=== PATIENT | female | born 1960 | race Caucasian/White ===

== ENCOUNTER 2016-12-08 15:48 | Emergency (ER) | payer SELFPAY ==
[2016-12-08 18:27] VITALS: BP 181/97
--- NOTE | 2016-12-08 18:35 | UC ---
Hand/Wrist HPI - HPI Summary HPI Summary: awoke this morning with swollen tender red pinky finger right hand no known trauma no difficulty ROM - History Of Current Complaint Chief Complaint: UCUpperExtremity Stated Complaint: FINGER INJURY Time Seen by Provider: 12/08/16 18:28 Hx Obtained From: Patient ?: No Mechanism Of Injury: no known injury Onset/Duration: Sudden Onset, Lasting Days - 1, Still Present Severity Initially: Mild Severity Currently: Moderate Pain Intensity: 5 Pain Scale Used: 0-10 Numeric Character Of Pain: Aching, Throbbing Aggravating Factor(s): Internal/External Rotation Alleviating: Nothing Associated Signs And Symptoms: Positive: Swelling, Redness Related History: Dominant Hand Right - Allergies/Home Medications Allergies/Adverse Reactions: Allergies Allergy/AdvReac Type Severity Reaction Status Date / Time Sulfa Drugs Allergy Severe Rash Verified 12/08/16 16:19 Home Medications: Home Medications Multiple Vitamins W/ Minerals [Multivitamin Adults] 1 tab PO DAILY 12/08/16 [ History Confirmed 12/08/16] PMH/Surg Hx/FS Hx/Imm Hx Previously Healthy: No Endocrine History Of: Denies: Diabetes, Thyroid Disease Cardiovascular History Of: Reports: Hypertension Denies: Cardiac Disorders Respiratory History Of: Denies: COPD, Asthma - Surgical History Surgical History: Yes Surgery Procedure, Year, and Place: CHOLECYSTECTOMY, HYSTERECTOMY - Family History Family History: no cardiovascular issues rported in family lineage - Social History Occupation: Employed Full-time Lives: With Family Alcohol Use: Occasionally Substance Use Type: None Smoking Status (MU): Never Smoked Tobacco Have You Smoked in the Last Year: No Review of Systems Constitutional: Negative Skin: Negative, Other - erythema distally right 5th finger Eyes: Negative ENT: Negative Respiratory: Negative Cardiovascular: Negative Gastrointestinal: Negative Genitourinary: Negative Motor: Negative Neurovascular: Negative Musculoskeletal: Arthralgia - tenderness right 5th finger Neurological: Negative Psychological: Negative All Other Systems Reviewed And Are Negative: Yes Physical Exam Triage Information Reviewed: Yes Appearance: Well-Appearing, No Pain Distress, Well-Nourished Vital Signs: Initial Vital Signs Temp 99.4 F 12/08/16 16:15 Pulse 104 12/08/16 16:15 Resp 16 12/08/16 16:15 BP 182/97 12/08/16 16:15 Pulse Ox 97 12/08/16 16:15 Vital Signs Reviewed: Yes Eye Exam: Normal Eyes: Positive: Conjunctiva Clear ENT Exam: Normal ENT: Positive: Normal ENT inspection, Hearing grossly normal, Pharynx normal. Negative: Nasal congestion, Nasal drainage, Trismus, Muffled/hoarse voice Dental Exam: Normal Neck exam: Normal Neck: Positive: Supple, Nontender, No Lymphadenopathy Respiratory Exam: Normal Respiratory: Positive: Chest non-tender, Lungs clear, Normal breath sounds, No respiratory distress, No accessory muscle use Cardiovascular Exam: Normal Musculoskeletal Exam: Normal Musculoskeletal: Positive: Strength Intact, ROM Intact, No Edema Neurological Exam: Normal Neurological: Positive: Alert, Muscle Tone Normal Psychological Exam: Normal Skin Exam: Other Skin: Positive: Other - erythema right fifth finger Hand/Wrist Course/Dx - Course Course Of Treatment: warm soaks, splint for comfort, keflex, ibuprofen follow BP with pcp - Differential Dx/Diagnosis Differential Diagnosis/HQI/PQRI: Bursitis, Cellulitis, Contusion, Sprain, Strain Provider Diagnoses: Cellulitis rigth 5th finger Discharge - Discharge Plan Condition: Stable Disposition: HOME Prescriptions: Cephalexin CAP* [Keflex CAP*] 500 mg PO QID #40 cap Patient Education Materials: Paronychia (ED), DASH Eating Plan (ED), Hypertension (ED), Warm Compress or Soak (ED) Forms: *Work Release Referrals: Sudhir Serna MD [Primary Care Provider] - 1 Week
== END 2016-12-08 18:48 | disposition home or self-care (01) ==
LOC: UCEAST 15:48
DX: L03.011 Cellulitis of right finger (principal); B96.89 Other specified bacterial agents as the cause of diseases classified elsewhere
CPT/HCPCS: 99212; G0463

== ENCOUNTER 2019-01-02 10:29 | Emergency (ER) | payer OTHER ==
[2019-01-02 10:54] VITALS: BP 163/91
--- NOTE | 2019-01-02 11:56 | UC ---
Respiratory Complaint HPI - HPI Summary HPI Summary: 58 y/o female presents to the urgent care c/o productive cough and yellowish sputum for the past 2 weeks. Pt reports symptoms started w/ low grade fever, nasal congestion and clear nasal discharge and PND. Symptoms have worsen since about 2 days ago she developed sore throat w/ a lot of PND.Pt hasn't been able to sleep well due to cough. This morning she noticed some white spots on her tonsils. Pt denies SOB, chest pain, dizziness, chest pain, abdominal pain, N/V/ D. - History of Current Complaint Chief Complaint: UCRespiratory Stated Complaint: RESP Time Seen by Provider: 01/02/19 11:32 Hx Obtained From: Patient Onset/Duration: Gradual Onset, Lasting Weeks - 2 weeks of productive cough and yellowish phlegm, Worse Since - 3 days w/ sore throat and white spot Timing: Intermittent Episodes Severity Initially: Mild Severity Currently: Moderate Pain Intensity: 4 - sore throat Pain Scale Used: 0-10 Numeric Character: Cough: Productive, Sputum Description: - yellowish Aggravating Factors: Recumbent Position Alleviating Factors: OTC Meds - cough drops Associated Signs And Symptoms: Positive: Fever - first day, URI, Nasal Congestion, Sinus Discomfort. Negative: Wheezing - Risk Factors Pulmonary Embolism Risk Factors: Negative Cardiac Risk Factors: Negative Pseudomonas Risk Factors: Negative Tuberculosis Risk Factors: Negative - Allergies/Home Medications Allergies/Adverse Reactions: Allergies Allergy/AdvReac Type Severity Reaction Status Date / Time Sulfa (Sulfonamide Allergy Rash Verified 01/02/19 10:52 Antibiotics) Home Medications: Home Medications Ibuprofen [Advil] 400 mg PO ONCE PRN 01/02/19 [History Confirmed 01/02/19] PMH/Surg Hx/FS Hx/Imm Hx Previously Healthy: Yes Cardiovascular History: Hypertension - diet controlled - Surgical History Surgical History: Yes Surgery Procedure, Year, and Place: CHOLECYSTECTOMY, HYSTERECTOMY - Family History Known Family History: Positive: Hypertension Family History: no cardiovascular issues rported in family lineage - Social History Occupation: Employed Full-time Lives: With Family Alcohol Use: Occasionally Substance Use Type: None Smoking Status (MU): Former Smoker Have You Smoked in the Last Year: No Review of Systems All Other Systems Reviewed And Are Negative: Yes Constitutional: Positive: Fever - low grade fever Skin: Positive: Negative Eyes: Positive: Negative ENT: Positive: Sore Throat, Other - PND Respiratory: Positive: Cough - productive w/ yellowish phlemg Cardiovascular: Positive: Negative Gastrointestinal: Positive: Negative Genitourinary: Positive: Negative Motor: Positive: Negative Neurovascular: Positive: Negative Musculoskeletal: Positive: Negative Neurological: Positive: Negative Psychological: Positive: Negative Is Patient Immunocompromised?: No Physical Exam - Summary Physical Exam Summary: Vital Signs Reviewed: Yes General: well developed, well nourished male sitting in the examining table w/o any apparent distress Eyes: Positive: Conjunctiva Clear - PERRLA, EOMI, fundi grossly normal ENT: Positive: Normal ENT inspection, Hearing grossly normal, Pharynx normal, Nasal congestion - edematous and erythematous nasal mucosa, Nasal drainage - yellowish drainage, TMs normal. Negative: Tonsillar swelling, Tonsillar exudate Neck: Positive: Supple, Nontender, No Lymphadenopathy Respiratory: no orthopnea or dyspnea. Able to speak in full sentences, no retractions or accessory muscle use, no tripod position, stridor, or head bobbing. Positive breath sounds bilaterally. diffuse scattered rhonchi on b/ L lungs, wheezes, no crackles or rales. Cardiovascular: Positive: RRR, No Murmur, Pulses Normal, Brisk Capillary Refill Abdomen Description: Positive: Nontender, No Organomegaly, Soft. Negative: CVA Tenderness (R), CVA Tenderness (L) Bowel Sounds: Positive: Present Musculoskeletal Exam: Normal Musculoskeletal: Positive: Strength Intact, ROM Intact, No Edema Neurological Exam: Normal Psychological Exam: Normal Skin Exam: Normal Triage Information Reviewed: Yes Vital Signs: Initial Vital Signs Temp 97.5 F 01/02/19 10:48 Pulse 114 01/02/19 10:48 Resp 18 01/02/19 10:48 BP 163/91 01/02/19 10:48 Pulse Ox 97 01/02/19 10:48 Respiratory Course/Dx - Course Course Of Treatment: 58 y/o female presents to the urgent care c/o productive cough and yellowish sputum for the past 2 weeks. Pt reports symptoms started w/ low grade fever, nasal congestion and clear nasal discharge and PND. Symptoms have worsen since about 2 days ago she developed sore throat w/ a lot of PND.Pt hasn't been able to sleep well due to cough. This morning she noticed some white spots on her tonsils. Pt denies SOB, chest pain, dizziness, chest pain, abdominal pain, N/V/ D. Hx obtained. Pt w/ scattered rhonchi on B/L posterior lungs and pharyngitis on examination. hx obtained. Rapid strep: negative.Pt with Acute bronchitis on examination. Pt Rx Augmentin PO and Tessalon tabs PO to alleviate cough. Pt advised to increase fluid intake and eat well. if not improvement or worsening of symptoms to return to the urgent care or f/u with PCP for further management. Pt's BP is elevated today advised to decrease salt in diet, monitor BP and f/u with PCP for further management. Pt understood and agreed with plan of care. - Differential Dx/Diagnosis Differential Diagnosis/HQI/PQRI: Asthma, Bronchitis, Exacerbation Of COPD, Lower Resp Infection, Sinusitis, Other - pneumonia Provider Diagnosis: Acute bronchitis, Uncontrolled hypertension Discharge - Sign-Out/Discharge Documenting (check all that apply): Patient Departure - d/C home All imaging exams completed and their final reports reviewed: No Studies - Discharge Plan Condition: Stable Disposition: HOME Prescriptions: Amoxicillin/Clavulanate TAB* [Augmentin TAB 875*] 875 mg PO BID #20 tab Benzonatate CAP* [Tessalon 100 MG CAP*] 100 mg PO TID PRN #21 cap PRN Reason: Cough Patient Education Materials: Acute Bronchitis (ED) [place]errals: [facility] [place] [facility] [place]] - 3 Days Additional Instructions: 1-Please take full course of antibiotic to avoid resistance. Take yogurt w/ probiotics or Culturelle to protect your GI system 2-Take Tessalon PO tabs as directed to alleviate cough. Increase fluid intake , rest and eat well. 3- If symptoms do not improve or worsen or your develop SOB with fever and severe wheezing please go immediately to the ER further evaluation and treatment. 4-Your BP is elevated today. Please take your BP medications and decrease salt in your diet, monitor BP and if it continues to be elevated please f/u with your PCP for further management. If you develop chest pain, dizziness, visual disturbances, SOB, or severe LUEVANO please go immediately to the ER for further management 5- Rapid strep: negative. F/u with your PCP in 3 days if not improvement of symptoms for further management. - Billing Disposition and Condition Condition: STABLE Disposition: Home
== END 2019-01-02 12:30 | disposition home or self-care (01) ==
LOC: UCEAST 10:29
DX: J20.9 Acute bronchitis, unspecified (principal); I10 Essential (primary) hypertension; Z88.2 Allergy status to sulfonamides; Z87.891 Personal history of nicotine dependence
CPT/HCPCS: 87651; 99212; G0463

== ENCOUNTER 2019-01-31 10:13 | Emergency (ER) | payer OTHER ==
--- NOTE | 2019-01-31 12:41 | UC ---
Throat Pain/Nasal Godfrey HPI - HPI Summary HPI Summary: 58 y/o female presents to the urgent care c/o sore throat for the past 3 days. Pt reports pain w/ swallowing is 2/10, But she noticed a white spot in her left tonsil. Pt reports she had Bronchitis about 1 months ago and was Rx Augmentin PO and symptoms resolved completely. Pt states she has Hx of HTN but diet controlled. Pt has not taken any medications to alleviate symptoms. pt denies fever, dizziness, LUEVANO, visual changes, SOB, chest pain, abdominal pain, N/v/d. - History of Current Complaint Chief Complaint: UCGeneralIllness Stated Complaint: SORE THROAT Time Seen by Provider: 01/31/19 12:40 Hx Obtained From: Patient Onset/Duration: Gradual Onset, Lasting Days - 2 days, Still Present, Worse Since - today Severity: Moderate Pain Intensity: 2 Pain Scale Used: 0-10 Numeric Cough: None Associated Signs & Symptoms: Positive: Negative. Negative: Wheezing, Sinus Discomfort, Nasal Discharge, Fever, Rash - Epiglottits Risk Factors Epiglottis Risk Factors: Negative - Allergies/Home Medications Allergies/Adverse Reactions: Allergies Allergy/AdvReac Type Severity Reaction Status Date / Time Sulfa (Sulfonamide Allergy Rash Verified 01/31/19 10:58 Antibiotics) Home Medications: Home Medications NK [No Home Medications Reported] 01/31/19 [History Confirmed 01/31/19] PMH/Surg Hx/FS Hx/Imm Hx Previously Healthy: Yes Cardiovascular History: Hypertension - Surgical History Surgical History: Yes Surgery Procedure, Year, and Place: CHOLECYSTECTOMY, HYSTERECTOMY - Family History Known Family History: Positive: Hypertension Family History: no cardiovascular issues rported in family lineage - Social History Occupation: Employed Full-time Lives: With Family Alcohol Use: Occasionally Substance Use Type: None Smoking Status (MU): Former Smoker Have You Smoked in the Last Year: No Review of Systems All Other Systems Reviewed And Are Negative: Yes Constitutional: Positive: Negative Skin: Positive: Negative Eyes: Positive: Negative ENT: Positive: Sore Throat - w/ a white spot in her RT tonsil Respiratory: Positive: Negative Cardiovascular: Positive: Negative Gastrointestinal: Positive: Negative Genitourinary: Positive: Negative Motor: Positive: Negative Neurovascular: Positive: Negative Musculoskeletal: Positive: Negative Neurological: Positive: Negative Psychological: Positive: Negative Is Patient Immunocompromised?: No Physical Exam - Summary Physical Exam Summary: VITAL SIGNS: Reviewed. GENERAL: Patient is a well developed and nourished female who is sitting comfortable in the examining table. Patient is not in any acute respiratory distress. HEAD AND FACE: No signs of trauma. No ecchymosis, hematomas or skull depressions. No sinus tenderness. EYES: PERRLA, EOMI x 2, No injected conjunctiva, no nystagmus. No photophobia. EARS: Hearing grossly intact. Ear canals and tympanic membranes are within normal limits. MOUTH: Positive pharynx with erythema, exudates, palatal petechiae. B/L tonsillar enlargement with mild exudate. Uvula in midline. NECK: Supple, trachea is midline, Positive anterior cervical lymphadenopathy, no JVD, no carotid bruit, no c-spine tenderness, neck with full ROM. No meningeal signs, no Kernig's or brudzinskis signs. CHEST: Symmetric, no tenderness at palpation LUNGS: Clear to auscultation bilaterally. No wheezing or crackles. CVS: Regular rate and rhythm, S1 and S2 present, no murmurs or gallops appreciated. ABDOMEN: Soft, non-tender. No signs of distention. No rebound no guarding, and no masses palpated. Bowel sounds are normal. EXTREMITIES: FROM in all major joints, no edema, no cyanosis or clubbing. NEURO: Alert and oriented x 3. No acute neurological deficits. Speech is normal and follows commands. SKIN: Dry and warm Triage Information Reviewed: Yes Vital Signs: Initial Vital Signs Temp 100 F 01/31/19 10:55 Pulse 107 01/31/19 10:55 Resp 20 01/31/19 10:55 BP 176/99 01/31/19 10:55 Pulse Ox 100 01/31/19 10:55 Throat Pain/Nasal Course/Dx - Course Course Of Treatment: 58 y/o female presents to the urgent care c/o sore throat for the past 3 days. Pt reports pain w/ swallowing is 2/10, But she noticed a white spot in her left tonsil. Pt reports she had Bronchitis about 1 months ago and was Rx Augmentin PO and symptoms resolved completely. Pt states she has Hx of HTN but diet controlled. Pt has not taken any medications to alleviate symptoms. pt denies fever, dizziness, LUEVANO, visual changes, SOB, chest pain, abdominal pain, N/v/d. Hx obtained. Pt pharyngitis on examination. Rapid strep ordered, result: negative. Viral pharyngitis. However pt request Monospot. Pt Rx ibuprofen PO to alleviates symptoms of pain and swelling. Monospot and CBC ordered. Pt will be notified of any abnormal result. Advised on hand washing to avoid spreading. Pt advised to rest, eat well and avoid strenuous exercise. If symptoms do not improve or worsen advised to return to the urgent care or f/u with her PCP for further evaluation and treatment.Pt's BP is elevated today and strongly advised to decrease salt in diet, monitor BP and f/u with PCP for further management and if she develops any LUEVANO, SOB chest pain or visual changes to go immediately ot the ER for further management . D/c instructions explained, Pt understood and agreed w/ plan of care. - Differential Dx/Diagnosis Differential Diagnosis/HQI/PQRI: Laryngitis, Mononucleosis, Pharyngitis, Sinusitis, Tonsillitis, URI Provider Diagnosis: Pharyngitis, Uncontrolled hypertension Discharge - Sign-Out/Discharge Documenting (check all that apply): Patient Departure - D/C home All imaging exams completed and their final reports reviewed: No Studies - Discharge Plan Condition: Stable Disposition: HOME Patient Education Materials: Pharyngitis (ED) Referrals: [facility] – [place] [facility] [Outside] - 3 Days Additional Instructions: 1-Please continue taking take ibuprofen PO 600mg q6-8hrs prn as instructed after meals to alleviate pain and swelling. Increase fluid intake, eat well, rest and avoid strenuous exercise 2-If symptoms do not improve or worsen please return to the urgent care or f/u with your PCP for further evaluation and treatment. 3-Your BP is elevated today. Please take your BP medications and decrease salt in your diet, monitor BP and if it continues to be elevated please f/u with your PCP for further management. If you develop chest pain, dizziness, visual disturbances, SOB, or severe LUEVANO please go immediately to the ER for further management - Billing Disposition and Condition Condition: STABLE Disposition: Home
[2019-01-31] MEDS ORDERED: Ibuprofen TAB* 600 MG PO ONE (13:09)
[2019-01-31 13:51] VITALS: BP 160/90
[2019-01-31 19:34] LABS: ABS Eosinophils 0.1 10^3/ul (0-0.6); ABS Lymphocytes 1.2 10^3/ul (1.0-4.8); ABS Monocytes 0.6 10^3/ul (0-0.8); ABS Neutrophils 3.9 10^3/ul (1.5-7.7); Eosinophil % 1.6 %; Hematocrit 44 % (35-47); Hemoglobin 14.9 g/dL (12.0-16.0); Lymphocyte % 20.8 %; Mean Corpuscular HGB Conc 33 g/dL (31-36); Mean Corpuscular Hemoglobin 33 pg (27-31); Mean Corpuscular Volume 98 fL (80-97); Mean Platelet Volume 9.7 fL (7.4-10.4); Nucleated Red Blood Cells % 0.2; Platelet Count 244 10^3/uL (150-450); Red Blood Count 4.53 10^6 /uL (3.70-4.87); Red Cell Distribution Width 13 % (10-15); White Blood Count 5.9 10^3/uL (3.5-10.8)
--- NOTE | 2019-02-01 12:19 | UC ---
- Progress Note Progress Note: CBC with diff reviewed mono neg no change Course/Dx - Diagnoses Provider Diagnoses: Pharyngitis, Uncontrolled hypertension Discharge - Sign-Out/Discharge Documenting (check all that apply): Post-Discharge Follow Up All imaging exams completed and their final reports reviewed: No Studies - Discharge Plan Condition: Stable Disposition: HOME Patient Education Materials: Pharyngitis (ED) Referrals: [facility] [place] [facility] [Outside] - 3 Days Additional Instructions: 1-Please continue taking take ibuprofen PO 600mg q6-8hrs prn as instructed after meals to alleviate pain and swelling. Increase fluid intake, eat well, rest and avoid strenuous exercise 2-If symptoms do not improve or worsen please return to the urgent care or f/u with your PCP for further evaluation and treatment. 3-Your BP is elevated today. Please take your BP medications and decrease salt in your diet, monitor BP and if it continues to be elevated please f/u with your PCP for further management. If you develop chest pain, dizziness, visual disturbances, SOB, or severe LUEVANO please go immediately to the ER for further management - Billing Disposition and Condition Condition: STABLE Disposition: Home
== END 2019-01-31 13:45 | disposition home or self-care (01) ==
LOC: UCEAST 10:13
DX: J02.9 Acute pharyngitis, unspecified (principal); I10 Essential (primary) hypertension; Z88.2 Allergy status to sulfonamides; Z87.891 Personal history of nicotine dependence
CPT/HCPCS: 36415; 85025; 86308; 86664; 86665; 87651; 99212; A9270-GY; G0463